=== PATIENT | female | born 1980 | race Caucasian/White ===

== ENCOUNTER 2018-05-05 12:27 | Emergency (ER) | payer MEDICAID ==
[~2018-05-05] VITALS: Ht 157.5 cm; Wt 68.9 kg
[2018-05-05 12:27] VITALS: BP_SYST 142
[~2018-05-05 12:27] MED LIST: motrin; thera-flu; tylenol
[2018-05-05] MEDS ORDERED: FLOEARD OP (12:34)
[2018-05-05 13:46] VITALS: BP_SYST 112
== END 2018-05-05 13:46 | disposition home or self-care (01) ==
LOC: SED 12:27
DX: J30.9 Allergic rhinitis, unspecified (principal); H10.9 Unspecified conjunctivitis; L30.9 Dermatitis, unspecified; Z79.899 Other long term (current) drug therapy
CPT/HCPCS: 99283

== ENCOUNTER 2022-03-22 22:14 | Emergency (ER) | payer MEDICAID ==
[~2022-03-22] VITALS: Ht 162.6 cm; Wt 69.9 kg
[~2022-03-22 22:14] MED LIST changes: +FLOEARD OP
[2022-03-22 22:35] VITALS: BP_SYST 121
--- NOTE | 2022-03-22 23:14 | NUR ---
Patient left without being seen.
== END 2022-03-22 23:14 | disposition left against medical advice (07) ==
LOC: SED 22:14
DX: R19.7 Diarrhea, unspecified (principal); Z53.21 Procedure and treatment not carried out due to patient leaving prior to being seen by health care provider